=== PATIENT | male | born 1995 | race Caucasian/White ===

== ENCOUNTER 2018-01-09 08:23 | Emergency (ER) | payer SELFPAY ==
[2018-01-09] MEDS: HYDROCODONE/APAP (5/325) TAB PO (08:48)
[2018-01-09] MEDS: ONDANSETRON (ODT) 4 MG TAB ODT (08:48)
[2018-01-09] MEDS: DIPHTH/TET/ACEL PERTUSS (ADULT) 0.5 ML VIAL IM* (08:48)
[2018-01-09] MEDS: CEPHALEXIN 500 MG CAP PO (08:54)
[2018-01-09] MEDS: LIDOCAINE 1%/EPI 30 ML INJ INJ (09:05)
== END 2018-01-09 10:23 | disposition home or self-care (01) ==
LOC: FTE 08:23
DX: S01.112A Laceration without foreign body of left eyelid and periocular area, initial encounter (principal); S80.01XA Contusion of right knee, initial encounter; V19.49XA Pedal cycle driver injured in collision with other motor vehicles in traffic accident, initial encounter; Z23 Encounter for immunization
CPT/HCPCS: 12011; 90471; 90715; 99283-25

== ENCOUNTER 2018-01-11 09:04 | Emergency (ER) | payer SELFPAY | END 2018-01-11 09:29 | disposition home or self-care (01) | LOC: FTE 09:04 | DX: S01.81XD Laceration without foreign body of other part of head, subsequent encounter (principal); X58.XXXD Exposure to other specified factors, subsequent encounter; Z48.01 Encounter for change or removal of surgical wound dressing | CPT/HCPCS: 99281 ==

== ENCOUNTER 2018-01-18 07:58 | Emergency (ER) | payer SELFPAY | END 2018-01-18 08:38 | disposition home or self-care (01) | LOC: FTE 07:58 | DX: Z48.02 Encounter for removal of sutures (principal) | CPT/HCPCS: 99281 ==